=== PATIENT | female | born 1945 | race Caucasian/White ===

== ENCOUNTER → 2018-07-31 | Outpatient (CLI) | payer OTHER ==
[~2018-07-31] MED LIST: ALPR1TAB2 PO; ATOR20TA37 PO; CALC-118 PO; CHOL10003 PO; CYAN1TAB29 PO; ESTR1VAG VG; LEVO1CAP PO; MELA1TAB15 PO; MODA200T2 PO; PRAZ1CAP2 PO; RALO60TA PO; [UNRECOGNIZED DRUG - OTHER] PO; trintellix PO
== END | disposition home or self-care (01) ==
LOC: STAR 09:59
PROVIDERS: ATTEND Specialist
DX: Z01.818 Encounter for other preprocedural examination (principal); N84.0 Polyp of corpus uteri
CPT/HCPCS: 93005

== ENCOUNTER 2018-08-07 10:08 | Day surgery (SDC) | payer OTHER ==
[~2018-08-07] VITALS: Ht 160 cm; Wt 61.1 kg
[2018-08-07] MEDS ORDERED: LACTATED RINGERS 1,000 ML IV SCH (10:41)
[2018-08-07 10:42] VITALS: BP 155/86
[2018-08-07] MEDS ORDERED: LIDOCAINE-MPF 1%, 2ML INFIL ONE (11:00)
[2018-08-07] MEDS ORDERED: BUPIVACAINE/PF 0.25% ONE (12:38)
[2018-08-07] MEDS ORDERED: SILVER NITRATE STICK TP ONE (12:39)
[2018-08-07] MEDS ORDERED: MIDAZOLAM 1 MG/ML, 2ML ONE (12:45)
[2018-08-07] MEDS ORDERED: FENTANYL PF 100 MCG/2ML ONE ×2 (12:46→13:37)
[2018-08-07] MEDS ORDERED: DEXAMETHASONE 4 MG/ML, 1ML ONE (12:54)
[2018-08-07] MEDS ORDERED: PROPOFOL 50 ML ONE (12:54)
[2018-08-07] MEDS ORDERED: ONDANSETRON 2MG/ML, 2ML ONE (12:54)
[2018-08-07] MEDS ORDERED: EPINEPHRINE 1 MG/ML, 1ML ONE (13:07)
[2018-08-07] MEDS ORDERED: PROMETHAZINE 25 MG/ML, 1ML IV PRN (13:30)
[2018-08-07] MEDS ORDERED: KETOROLAC 30 MG/1 ML IV PRN (13:30)
[2018-08-07] MEDS ORDERED: hydrALAzine 20 MG/ML, 1ML IV PRN (13:30)
[2018-08-07] MEDS ORDERED: ACETAMINOPHEN 325 MG TABLET PO PRN (13:30)
[2018-08-07] MEDS ORDERED: ALBUTEROL SULFATE 2.5 MG/3 ML NPPB PRN (13:30)
[2018-08-07] MEDS ORDERED: LABETALOL 5MG/ML, 20ML IV PRN (13:30)
[2018-08-07] MEDS ORDERED: MEPERIDINE/PF 25MG/0.5ML IVPush PRN (13:30)
[2018-08-07] MEDS ORDERED: FENTANYL PF 100 MCG/2ML IV PRN (13:30)
[2018-08-07] MEDS ORDERED: OXYcodone 5 MG/5 ML ORAL.SOL UDC PO PRN (13:30)
[2018-08-07] MEDS ORDERED: HYDROmorphone 2 MG/ML, 1ML IVPush PRN (13:30)
[2018-08-07] MEDS ORDERED: DIAZEPAM 5 MG/ML, 2ML IVPush PRN (13:30)
[2018-08-07] MEDS ORDERED: KETOROLAC 30 MG/1 ML ONE (13:37)
[2018-08-07] MEDS ORDERED: ACETAMINOPHEN 650 MG/20.3 ML UDC ONE (13:37)
[2018-08-07] MEDS ORDERED: OXYcodone 5 MG/5 ML ORAL.SOL UDC ONE (13:37)
== END 2018-08-07 15:50 | disposition home or self-care (01) ==
LOC: OUT 10:08
PROVIDERS: ATTEND Specialist
DX: N84.0 Polyp of corpus uteri (principal); N88.2 Stricture and stenosis of cervix uteri; N81.4 Uterovaginal prolapse, unspecified; I10 Essential (primary) hypertension; G43.909 Migraine, unspecified, not intractable, without status migrainosus; M81.0 Age-related osteoporosis without current pathological fracture; Z72.89 Other problems related to lifestyle; Z79.899 Other long term (current) drug therapy; Z87.442 Personal history of urinary calculi; Z80.8 Family history of malignant neoplasm of other organs or systems
CPT/HCPCS: 58558; 88305; J0171; J1100; J1885; J2250; J2405; J2704; J3010; J3490; J7120

== ENCOUNTER → 2019-01-03 | Outpatient (CLI) | payer OTHER | END | disposition home or self-care (01) | LOC: CFH 11:01 | PROVIDERS: ATTEND Specialist | DX: M47.26 Other spondylosis with radiculopathy, lumbar region (principal); N63.20 Unspecified lump in the left breast, unspecified quadrant; R92.2 Inconclusive mammogram | CPT/HCPCS: 76642; 77066; G0279 ==